=== PATIENT | male | born 1955 | race Caucasian/White ===

== ENCOUNTER 2017-05-14 19:15 | Inpatient (IN) | payer OTHER ==
--- NOTE | 2017-05-13 23:50 | NUR ---
[facility] HOSPITALIST NUMBER [phone], SPOKE TO DR. FALCON, INFORMED OF MEDICAL CONSULT, DR. FALCON STATED TO PLACE CONSULT UNDER . ALSO REVIEWED ALL MEDICATIONS, MEDICAL HISTORY, ADMISSION VITALS, AND REASON FOR ADMISSION WITH DR. FALCON. DR. FALCON STATED TO CONTINUE ALL MEDICATIONS AT THIS TIME. ALSO STATED TO PLACE IN ORDER FOR PATIENTS BIPAP MACHINE. NO OTHER ORDERS RECIEVED.
[~2017-05-14] VITALS: Ht 165.1 cm; Wt 150.6 kg
--- NOTE | ~2017-05-14 | PR ---
[place], [place] PROGRESS NOTE NAME: KARRI ADAMSON [facility] #: [id number] UNIT #: [id number] ROOM: 312 DOCTOR: Breanna QUINTERO,JOSLYN BIRTHDATE: [birth year] DOS: 05/19/2017 PSYCHIATRIC PROGRESS NOTE SUBJECTIVE: Patient seen and spoke with staff. Per staff, patient is doing well. Slept well last night. Some paranoia, but no behavior problems or issues and med compliant. Patient was pleasant and cooperative. He was in his room as usual on bed. He reports doing okay. States that he is still paranoid, but it is much better than before. Had fleeting suicidal ideation, but no intent or plan. He said that the medication seems to be helping him. Denied any side effect from the medication. Did not express any other problems or concerns. MENTAL STATUS EXAMINATION: Patient was pleasant, cooperative. Described his mood as "better." Affect broad range. Thought process goal directed. No flight of ideas or loosening of association. He denied auditory or visual hallucination. He reports being paranoid, but much better than before. Denied any other psychotic symptoms. He still had fleeting suicidal ideation, but no intent or plan. Denied any homicidal ideation, intent or plan. Insight and judgment fair. ASSESSMENT: Schizoaffective disorder, still paranoid with passive suicidal ideation, but no intent or plan. PLAN: 1. We will continue current medication. We need to give time for the medication to have its optimal effect. 2. Continue redirection. 3. Wayne milieu. 4. Encourage activity and groups. JOSLYN QUINTERO MD CM:NEWTON [phone] Breanna QUINTERO 05/20/17 0433 interface
--- NOTE | ~2017-05-14 | DS ---
[place], [place] DISCHARGE SUMMARY NAME: KARRI ADAMSON [facility] #: [id number] UNIT #: [id number] ROOM: 312 DOCTOR: CYNTHIA GRIFFIN MD BIRTHDATE: [birth year] DOS: 05/23/2017 CHIEF COMPLAINT: "I just wanted to end it all, I felt horrible." HISTORY OF PRESENT ILLNESS: This is a 61-year-old white male with a long history of either schizoaffective or bipolar disorder, who presented to [facility] with a chief complaint of increased depression and suicidal ideation with a plan to cut himself from ear to ear. The patient reports that he has felt horrible since recent medication changes were made by his outpatient psychiatrist. His BuSpar was discontinued and he was started on Klonopin. Additionally, he was started on a new antipsychotic, Navane. Since that time, he has noted increase in depression with poor sleep and appetite, energy, anhedonia, hopeless, helpless feelings, crying spells and inability to cope with strong feelings of wanting to end it all. He was sent here by [facility] to rule out further organic factors, to stabilize on medication and to engage in individual and robledo milieu activity. PAST MEDICAL HISTORY: Remarkable for hypertension, atrial fibrillation, diabetes, renal failure, hypothyroidism, coronary artery disease, MIs and long history of depression. SUMMARY OF HOSPITAL COURSE: The patient was admitted to the hospital where his Navane was discontinued in lieu of Abilify 20 mg a day. This was later lowered down to 15. He was also started on trazodone 100 mg at bedtime with excellent results. The patient did briefly get restarted on BuSpar, however, it was decided that this was not needed, nor was the Vistaril that was also started upon admission with the addition of the Abilify that seemed to give him the greatest impact and worked rather rapidly. His mood quickly stabilized and he normalized sleep and appetite. He voiced positive plans for the future and no longer exhibited any suicidal or homicidal ideation. He also tolerated the medication regimen well without any apparent side effects. FINAL DIAGNOSES: Bipolar type 1, mixed. PLAN: All of his prescriptions have been e scribed to [facility] in [place], [place]. He will have followup per his outpatient psychiatrist. [place], [place] DISCHARGE SUMMARY NAME: KARRI ADAMSON UNIT #: [id number] ROOM: 312 DOCTOR: CYNTHIA GRIFFIN MD BIRTHDATE: [birth year] CYNTHIA GRIFFIN MD CM:FRANCESCA [id number] CYNTHIA GRIFFIN MD 05/23/17 1026 interface
--- NOTE | ~2017-05-14 | PR ---
[place], [place] PROGRESS NOTE NAME: KARRI ADAMSON [facility] #: [id number] UNIT #: [id number] ROOM: 312 DOCTOR: Breanna QUINTERO,JOSLYN BIRTHDATE: [birth year] DOS: 05/16/2017 PSYCHIATRIC PROGRESS NOTE SUBJECTIVE: Patient seen and spoke with the staff. Per staff, patient slept all night. Goal directed. Still had suicidal ideation, but no intent or plan. Patient was pleasant and cooperative, where he was somewhat apprehensive. He said he took his medication and it seems they are helping. He talked about his fleeting suicidal ideation, but no intent or plan. He said that he did not have any side effect from the medication and hoping that the medication will help him. He was not in any acute distress. MENTAL STATUS EXAMINATION: The patient was pleasant, cooperative. Described his mood as "okay." Affect was flat. Thought process goal directed. No flight of ideas, loosening of association. He denied auditory or visual hallucination. No delusion or paranoia noted. He had fleeting suicidal ideation, but no intent or plan. Denied any homicidal ideation, intent or plan. Insight and judgment fair. ASSESSMENT: Schizoaffective disorder, still suicidal. PLAN: 1. Continue current medication and care. We have to give time for the medication to start working. 2. Continue redirection. 3. Wayne milieu. JOSLYN QUINTERO MD CM:PNTRANS 58 Breanna QUINTERO 05/17/1739 interface
--- NOTE | ~2017-05-14 | PR ---
[place], [place] PROGRESS NOTE NAME: KARRI ADAMSON [facility] #: [id number] UNIT #: [id number] ROOM: 312 DOCTOR: Breanna QUINTERO,JOSLYN BIRTHDATE: [birth year] DOS: 05/18/2017 PSYCHIATRIC PROGRESS NOTE SUBJECTIVE: Patient seen and spoke with the staff. Per staff, patient is doing well. No behavioral problems or issues. Med compliant. Patient was pleasant, cooperative. He was at first in his room. He said the medication is helping him; he is taking them and did not have any side effect. He still had some paranoia. He also talked about some racing thoughts and having passive suicidal ideation. He mentioned that he will let the staff know if the thought becomes stronger. MENTAL STATUS EXAMINATION: Patient was pleasant, cooperative. Described his mood as "okay." Affect, mood congruent. Thought process goal directed. No flight of ideas, loosening of association. He denied auditory or visual hallucination. He reports being paranoid. He reports fleeting suicidal ideation, but no intent or plan. Denied homicidal ideation, intent or plan. ASSESSMENT: Schizoaffective disorder. PLAN: 1. Continue current medication and care. 2. Continue redirection. 3. Wayne milieu. JOSLYN QUINTERO MD CM:NEWTON [phone] Breanna QUINTERO 05/18/17 2335 interface
--- NOTE | ~2017-05-14 | PR ---
[place], [place] PROGRESS NOTE NAME: KARRI ADAMSON [facility] #: [id number] UNIT #: [id number] ROOM: 312 DOCTOR: Breanna QUINTERO,JOSLYN BIRTHDATE: [birth year] DOS: 05/20/2017 SUBJECTIVE:. The patient seen and spoke with the staff. Per staff, the patient is doing well. No behavior problems or issues. Medication compliant. The patient was pleasant, cooperative. He was in the day area watching TV. This is somewhat unusual than his normal days. He stays in his room most of the time. He reports doing well. He feels that the medication is helping him. He still had some paranoia, but denied any other psychotic symptoms. He said that he tried to get ahold of his girlfriend, but the girlfriend did not answer his phone. In talking, he told me that he stays in his home most of the day. He does not have any significant family or social support system in the community. I talked with him about doing some volunteer work or going to some day treatment facility. The patient seems to be agreeable with that suggestion. MENTAL STATUS EXAMINATION: The patient was pleasant and cooperative. Described his mood as "okay." Affect, mood congruent. Thought process goal directed. No flight of ideas or loosening of association. He denied auditory or visual hallucination. He still had some paranoia. Denied any suicidal ideation, intent or plan. He also denied any homicidal ideation, intent or plan. Insight and judgment fair. ASSESSMENT: Schizoaffective disorder. PLAN: 1. Continue current medication and care. 2. Probably we need to look into engaging some activity in the community upon discharge. 3. Medication management, discharge plan by the regular team. JOSLYN QUINTERO MD CM:NEWTON [phone] Breanna QUINTERO 05/20/17 0953 interface
--- NOTE | ~2017-05-14 | WRIGHTHP ---
[place], [place] PATIENT HISTORY AND PHYSICAL EXAM NAME: KARRI ADAMSON [facility] #: [id number] UNIT #: [id number] ROOM: 312 DOCTOR: Breanna QUINTEROVERNELLJESSE BIRTHDATE: [birth year] DOS: 05/14/2017 REASON FOR HOSPITALIZATION: Increased depression and suicidal ideation with plan to cut his throat. HISTORY OF PRESENT ILLNESS: The patient was seen, chart reviewed and spoke with staff. A 61-year-old male with long history of bipolar disorder versus schizoaffective disorder, who got transferred from [facility] to the [facility] for further care and stabilization. In the ER, his labs were within normal limit. Urine drug screen was negative. Reportedly, the patient went to the ER by himself and stating that he wanted to kill himself by cutting his throat. The patient was pleasant and cooperative, but very anxious and shaky during the interview. He reports being depressed, down, sad, hopeless, helpless with lack of energy and motivation. He also talked about increased anxiety, but denied any panic attack. When I asked him that what made him feel the way he has been feeling. He talked about recent medication changes and also feeling "miserable" without any specific reason. He said that not able to sleep well at night, added to his miserable feeling. The patient denied any symptoms of psychosis, darlene or hypomania. The patient mentioned that recently his psychiatrist stopped his BuSpar and started him on Klonopin and also started him on NaBen. The patient mentioned that he has been feeling increasingly anxious, cloudy and feeling restless. The patient wanted to get help in terms of his medication adjustment and not to feel the way he has been feeling. He reports occasional racing thoughts, mood swings and irritability. PAST MEDICAL HISTORY: Significant for hypertension, atrial fibrillation, diabetes mellitus, questionable renal failure in the past, history of hypothyroidism, coronary artery disease, multiple myocardial infarctions and had a cardiac catheterization in 1999. PAST PSYCHIATRIC HISTORY: Multiple prior psychiatric hospitalization. Denied prior suicide attempt. No suicide in the family. FAMILY HISTORY: Denied having any gun at home. SUBSTANCE ABUSE HISTORY: The patient denied any drugs or alcohol. SOCIAL HISTORY: Was born and raised in [place] year of college. He was once for short period of time, , no kids. He is on social security disability. He lives by himself. He denied any history of physical or sexual abuse. MENTAL STATUS EXAMINATION: The patient was pleasant and cooperative, described his mood as "down." Affect was flat. Thought process goal directed. No flight of ideas or loosening of association. He denied auditory or visual hallucination. No delusion or paranoia noted. He had suicidal ideation with a plan to cut himself. Denied any homicidal ideation, intent or plan. Insight [place], [place] PATIENT HISTORY AND PHYSICAL EXAM NAME: KARRI ADAMSON UNIT #: [id number] ROOM: 312 DOCTOR: Breanna QUINTERO MAHBOOB BIRTHDATE: [birth year] and judgment fair. IMPRESSION: Bipolar disorder, currently very depressed with suicidal ideation, rule out schizoaffective disorder. PLAN: 1. I will discontinue his NaBen. 2. I will start him on Abilify 20 mg in the morning. The patient mentioned that he took Abilify in the past and that helped him and he is not sure why this got discontinued. 3. I will start him on trazodone 100 mg at night for sleep. 4. I will restart him on BuSpar 5 mg b.i.d. The patient mentioned that he did well with BuSpar and not sure why that got stopped. 5. I will start him on Vistaril 25 mg t.i.d. p.r.n. for breakthrough anxiety until the BuSpar is in full effect. 6. I will continue his Trileptal 300 mg twice a day that he has been getting. 7. To need to get collateral information from other hospital. 8. One to one therapy, psychoeducation, coping skills. 9. Unit milieu. JOSLYN QUINTERO MD CM:HISPHYS:PATIENT HISTORY AND PHYSICAL EXAMINATION [id number] Breanna QUINTERO 05/15/17 1222 interface
--- NOTE | ~2017-05-14 | PR ---
[place], [place] PROGRESS NOTE NAME: KARRI ADAMSON [facility] #: [id number] UNIT #: [id number] ROOM: 312 DOCTOR: Breanna QUINTERO,JOSLYN BIRTHDATE: [birth year] DOS: 05/17/2017 SUBJECTIVE: The patient seen and spoke with the staff. Per staff, the patient is doing well. No behavioral problems or issues except for his blood sugar was a little high. He slept very well. Medication compliant. The patient was pleasant, cooperative. He was in the day area. He reports doing well. He feels that the medication is helping him. He denied any auditory or visual hallucination. No delusion or paranoia noted. He had fleeting suicidal ideation, but no intent or plan. Denied homicidal ideation, intent or plan. Insight and judgment fair. ASSESSMENT: Schizoaffective disorder. PLAN: 1. Continue current medication and care. 2. Continue redirection. 3. Supportive care and robledo milieu. JOSLYN QUINTERO MD CM:NEWTON 47 [phone] Breanna QUINTERO 05/17/172350 interface
[~2017-05-14 19:15] MED LIST: BUSPAR10 MG PO; CALCIUM 1200 W/1 SGL PO; DULCOLAX10 M1 R; FENOFIBRATE160 MG PO; FLEXERIL10 MG PO; FOLIC ACID1 MG PO; GABAPENTIN300 MG PO; HUMULIN R100 U/ML SC; LANOXIN0.25 MG PO; LANTUS100 U/ML SC; LASIX40 MG PO; LIPITOR10 MG PO; LISINOPRIL10 MG PO; METFORMIN1000 MG PO; METOPROLOL SR100 MG PO; PERCOCET 325 MG1 TA2 PO; PRADAXA150 MG PO; SINGULAIR10 MG PO; SYNTHROID25 MCG PO; TOPAMAX25 MG PO; TYLENOL650 M1 PO; ULTRAM50 MG PO
[2017-05-14] MEDS ORDERED: LASIX40 MG PO (20:13)
[2017-05-14] MEDS ORDERED: HUMALOG100 UNIT/1 SQ (20:49)
[2017-05-14] MEDS ORDERED: PRILOSEC20 M1 PO (20:53)
[2017-05-14] MEDS ORDERED: METOLAZONE5 MG PO (20:54)
[2017-05-14] MEDS ORDERED: HYDROCHLOROTHIA25 M1 PO (20:55)
[2017-05-14] MEDS ORDERED: CARDIZEM CD120 M2 PO (20:57)
[2017-05-14] MEDS ORDERED: DOCUSATE SODIU100 M2 PO (20:59)
[2017-05-14] MEDS ORDERED: VITAMIN D-32000 UNI1 PO (21:00)
[2017-05-14] MEDS ORDERED: TRULICITY0.75 MG/0. SC (21:02)
[2017-05-14 21:10] VITALS: BP 126/74
--- NOTE | 2017-05-14 21:10 | NUR ---
A 61 YO, admitted INVOLUNTARY to , under the services of Dr.MAHBOOB QUINTERO with a diagnosis of SUICIDAL IDEATIONS . Chief complaint is SUICIDAL IDEATIONS, ANXIETY, AND POOR SLEEP. Patient arrived via stretcher from [facility]. Initial assessment completed. Vital signs taken and recorded. DR. JOSLYN QUINTERO notified of admission to the unit. Orders received. See assessment for past medical history, medications and allergies. Patient oriented to unit. [facility] visitation policy reviewed. Clothing/patient valuable form completed. JOE MORALES
[2017-05-14 21:15] VITALS: BP 126/74
[2017-05-14] MEDS ORDERED: TRESIBA FL200 UNIT/1 SQ (22:46)
[2017-05-14] MEDS ORDERED: CENTRUM MEN'S1 EACH PO (22:49)
[2017-05-14] MEDS ORDERED: FLOMAX0.4 MG PO (22:51)
[2017-05-14] MEDS ORDERED: OXYBUTYNIN10 MG PO (22:51)
[2017-05-14] MEDS ORDERED: KLONOPIN2 M1 PO (22:54)
[2017-05-14] MEDS ORDERED: TRAZODONE50 MG PO (22:54)
[2017-05-14] MEDS ORDERED: COGENTIN0.5 MG PO (22:56)
[2017-05-14] MEDS ORDERED: NAVANE5 MG PO (22:56)
[2017-05-14] MEDS ORDERED: IMDUR SA60 M1 PO (23:14)
[2017-05-14] MEDS ORDERED: POTASSIUM99 M5 PO (23:15)
--- NOTE | 2017-05-14 23:50 | NUR ---
[facility] HOSPITALIST NUMBER [phone], SPOKE TO , INFORMED HIM OF MEDICAL CONSULT. STATED TO PLACE CONSULT UNDER . ALSO REVIEWED ALL MEDICATIONS, MEDICAL HISTORY, ADMISSION VITALS, AND REASON FOR ADMISSION WITH DR. FALCON. STATED TO CONTINUE ALL MEDICATIONS AT THIS TIME. ALSO STATED TO PLACE IN ORDER FOR PATIENTS BIPAP MACHINE. ORDERS WRITTEN DOWN AND REPEATED BACK, WITNESSED BY SECOND RN. NO OTHER ORDERS RECIEVED.
[2017-05-15 04:25] LABS: CHOLESTEROL 142 mg/dL (<200); HDL CHOLESTEROL 31 mg/dl (40-60); LDL CHOLESTEROL 81 mg/dL (9-159); TRIGLYCERIDES 151 mg/dl (<150); VLDL CHOLESTEROL 30 mg/dL (6-40)
--- NOTE | 2017-05-15 07:16 | NUR ---
PATIENT COOPERATIVE WITH ADMISSION ASSESSMENT WITHOUT DIFFICULTY. DENIES HALLUCINATIONS OR DELUSIONS. NO NOTED RESPONDING TO INTERNAL STIMULI. NO PHYSICAL COMPLAINTS VOICED. PATIENT STATES HE "RARELY" HAS SUICIDAL THOUGHTS BUT IF HE LEAVES HERE "IT WILL NOT BE GOOD" BECAUSE HE HAS HAD AN INCREASE IN ANXIETY AND "I DONT SLEEP VERY WELL AND I CANT TAKE IT ANYMORE". EMOTIONAL SUPPORT PROVIDED. DENIES SUICIDAL IDEATIONS AT THIS TIME BUT INFORMED THAT IF THOUGHTS ARISE TO NOTIFY STAFF. PATIENT CONTRACTED FOR SAFETY. MEDICATION COMPLIANT WITHOUT DIFFICULTY AFTER REVIEW. NO SIGNS OR SYMPTOMS OF DISTRESS NOTED. REFER TO [facility] FLOWSHEET FOR SPECIFIC MONITORING.
[2017-05-15 08:03] VITALS: BP 132/72; BP 140/100
[2017-05-15] MEDS ORDERED: PERCOCET 5-3251 EACH PO (09:10)
--- NOTE | 2017-05-15 09:13 | NUR ---
DR. QUINTERO ON UNIT TO SEE PT AT THIS TIME, UPDATE GIVEN.
[2017-05-15] MEDS ORDERED: TRILEPTAL300 MG PO (09:19)
[2017-05-15 09:30] LABS: BILIRUBIN NEGATIVE (NEGATIVE); BLOOD NEGATIVE (NEGATIVE); CLARITY CLEAR (CLEAR); COLOR YELLOW (YELLOW); GLUCOSE TRACE (NEGATIVE); KETONE NEGATIVE (NEGATIVE); LEUKO ESTERASE NEGATIVE (NEGATIVE); NITRITE NEGATIVE (NEGATIVE); PH 7.5 (5.0-9.0)
--- NOTE | 2017-05-15 10:24 | NUR ---
CALL PLACED TO [phone], SPOKE WITH DR. ADKINS, MADE AWARE PHARMACY STATES TRULIICY AND TRESIBA ARE UNAVAILABLE. MADE AWARE PT STATES HE TAKES 20 UNITS OF NOVOLOG WITH MEALS AND NO SLIDING SCALE. DR. ADKINS STATES WE WILL CONTINUE 20 UNITS NOVOLOG WITH MEALS PT TAKES AT HOME. ALSO MADE AWARE OF POTASSIUM AT ER WAS 3.4, PT STATES HE TAKES "500MG OF POTASSIUM OVER THE COUNTER" MADE AWARE POTASSIUM IS LISTED IN MED REC WITH NO DOSE, DR. ADKINS STATES THEY WILL MONITOR IT. DR. ADKINS REQUESTS THIS NURSE OBTAIN PHARMACY RECOMMENDATIONS FOR SUBSTITUTION FOR TRULICITY AND TRESIBA.
--- NOTE | 2017-05-15 11:24 | NUR ---
PT IS ALERT AND ORIENTED TO PERSON, PLACE, TIME AND SITUATION. MEMORY APPEARS TO BE INTACT. RESPIRATIONS EASY ON ROOM AIR, POX 98% ON ROOM AIR, PT UTILIZES BIPAP AT HS D/T DX SLEEP APNEA. BIPAP LOCKED IN CUPBOARD WHEN NOT IN USE. MOOD IS DEPRESSED WITH FLAT AFFECT. SPEECH IS WNL AND COHERENT, ABLE TO MAKE NEEDS KNOWN WITHOUT DIFFICULTY. PT REPORTS FEELING ANXIOUS AND RESTLESS, DENIES SI/HI AT THIS TIME, DENIES HALLUCINATIONS, NO S/S INTERNAL STIMULI NOTED. NO PARANOIA/DELUSIONS NOTED. PT WAS GIVEN PRN VISTARIL 25MG ONE CAP PO AT [address] QUINTERO FOR PT C/O ANXIETY/RESTLESSNESS, PT REPORTS THIS MEDICATION INEFFECTIVE. PT WAS THEN GIVEN ROUTINELY SCHEDULED BUSPAR AND ABILIFY. PT SHOWERED, DRESSED, APPEARS LESS ANXIOUS, NO FURTHER COMPLAINTS VOICED. PT IS AMBULATORY WITH STEADY GAIT, INDEPENDENT WITH ADLS, CONTINENT OF BOWEL AND BLADDER, FEEDS SELF. TREMORS NOTED TO BILATERAL UPPER EXTREMITIES, DR. QUINTERO AWARE, PT RECIEVING COGENTIN. PT'S TREATMENT PLAN TARGETS SUICIDIAL IDEATION RELATED TO ANXIETY AND POOR SLEEP EVIDENCED BY PT'S VERBALIZATION OF OVERWHELMING FEELING TO 'SLICE THROAT EAR TO EAR.' STAFF WILL ASSESS PT FOR SUICIDAL IDEATIONS DURING DAILY INTERACTIONS, ASSIST PT IN IDENTIFYING TRIGGERS TO SUICIDAL IDEATIONS, ASSIST PT TO IDENFTIFY 3 COPING SKILLS TO RELIEVE SYMPTOMS AND ENCOURAGE MEDICATION COMPLIANCE. PLAN TO CONTINUE CURRENT TX PLAN. NO DISTRESS NOTED. Q15 MIN SAFETY CHECKS CONTINUE PER POLICY, REFER TO [facility] FLOWSHEET FOR SPECIFIC MONITORING.
--- NOTE | 2017-05-15 11:40 | NUR ---
DR. AGRAWAL, DR. ADKINS AND DR. GLORIA ON UNIT AT THIS TIME, MADE AWARE OF PHARMACY'S RECOMMENDATIONS RE: TRULICITY AND TRESIBA, PER CONRAD (PHARMACIST) CONVERSIONS WOULD FOLLOWS: TRULICITY - SUBSTITUTE VICTOZA 0.6MG SQ DAILY. TRESBIA - SUBSTITUTE LEVEMIR [address] ADKINS STATES HE WILL ENTER THESE ORDERS. DR. AGRAWAL STATES OK TO CHANGE NOVOLOG TIMES TO MEAL TIMES.
--- NOTE | 2017-05-15 17:15 | NUR ---
20 UNITS ROUTINELY ORDERED NOVOLOG HELD FOR 1700 DOSE, BSG 143, PT REFUSING TO EAT DINNER, STATES "IF I EAT NOW I'LL THROW UP AND IF I TAKE THAT INSULIN MY SUGAR WILL DROP."
--- NOTE | 2017-05-15 17:49 | NUR ---
CALLED TO PT'S ROOM BY MILIEU, PT STATES "I JUST THREW UP. I'VE BEEN SICK TO MY STOMACH EVER SINCE YOU GAVE ME THAT LOZENGE. I CAN'T TAKE ANY MORE OF THOSE." CALL PLACED TO [phone], SPOKE TO DR. TOSCANO, MADE AWARE OF THE ABOVE. NO DOCUMENTED ALLERGY TO ZOFRAN, DR. TOSCANO STATES HE WILL ENTER NEW ORDER FOR PO ZOFRAN.
--- NOTE | 2017-05-15 18:13 | NUR ---
SHIFT CHART CHECK COMPLETED.
[2017-05-15 19:50] VITALS: BP 114/64
--- NOTE | 2017-05-15 22:15 | NUR ---
MAINTENANCE ON FLOOR TO CHECK BIPAP MACHINE. GIVEN THE OK TO USE. CIRCUITRY NEGATIVE INSPECTOR WITH STERILE WATER IN PLACE AND PT RESTING QUIETLY WITH BIPAP IN PLACE.
--- NOTE | 2017-05-15 23:05 | NUR ---
PT A&O X4. RESPITRATIONS EASY AND NON LABORED ON ROOM AIR. PT UTILIZES BIPAP AT HS D/T DX SLEEP APNEA. BIPAP LOCKED IN CABINET IN ROOM WHEN NOT IN USE. MOOD IS DEPRESSED. AFFECT FLAT. ABLE TO MAKE WANTS AND NEEDS KNOWN TO STAFF WITHOUT DIFFICULTY. DENIES SI/HI, HALLUCINATIONS/DELUSIONS AT THIS TIME. MEDICATION COMPLIANT WITH ALL MEDICATIONS. NO DISTRESS NOTED. NO C/O PAIN. PT'S TX PLAN TARGETS SUICIDAL IDEATIONS R/T ANXIETY AND POOR SLEEP AEB PTS VERBALIZATION OF OVERWHELMING FEELING TO "SLICE THROAT FROM EAR TO EAR" STAFF WILL ASSESS PT FOR SUICIDAL IDEATIONS, ASSIST PT TO IDENTIFY 3 COPING SKILLS TO RELIEVE SYMPTOMS AND ENCOURAGE MEDICATION COMPLIANCE. STAFF WILL EDUCATE PT ON NEW MEDICATIONS. ENCOURAGE ATTENADNCE AND PARTICIPATION IN GROUPS AND ACTIVITIES. PLAN IS TO CONTINUE WITH CURRENT TX PLAN. Q 15 MINUTE SAFETY CHECKS MAINTAINED. SEE [facility] FLOWSHEET FOR SPECIFIC MONITORING.
--- NOTE | 2017-05-15 23:13 | NUR ---
24 HR chart check completed.
[2017-05-16 04:10] LABS: BASO # 0.1 10*3/uL (0.0-0.1); EOS # 0.1 10*3/uL (0.0-0.4); EOS % 1.2 % (1.0-4.0); HEMATOCRIT 41.2 % (42.0-52.0); HEMOGLOBIN 14.5 g/dl (14.0-18.0); MEAN CELL VOLUME 82.4 fl (80.0-94.0); MEAN CORPUSCULAR HGB CONC 35.2 g/dl (33.0-37.0); MEAN PLATELET VOLUME 10.7 fl (9.6-12.3); MONO # 0.7 10*3/uL (0.1-1.0); MONO % 7.1 % (3.0-9.0); NEUT # 6.5 10*3/uL (2.3-7.9); NEUT % 69.3 % (47.0-73.0); PLATELET COUNT AUTOMATED 233 10*3/uL (130-400); RED CELL DISTRI WIDTH 13.7 % (0-14.5); WHITE BLOOD COUNT 9.4 10*3/uL (4.8-10.8)
--- NOTE | 2017-05-16 04:10 | NUR ---
PT CAME TO NURSES STATION ASKING "IS THERE A PRN I CAN HAVE BECAUSE i AM ANXIOUS" WHEN PT WAS ASKED WHY HE WAS ANXIOUS PT REPLIED "BECAUSE I AM AWAKE AND THERES NOTHING TO DO". EXPLAINED TO PT HE WAS ABLE TO SIT IN THE DININGROOM AND LOOK AT MAGAZINES, WATCH TV, OR TALK TO STAFF. PT WANTED TO WATCH TV FOR A BIT IN THE DININGROOM. PT STAYED FOR ABOUT 10 MINUTES THEN DECIDED HE WAS GOING TO TRY TO LAY BACK DOWN. WILL REASSESS PT ANXIETY.
[2017-05-16 04:30] LABS: ALKALINE PHOSPHATASE 95 U/L (45-117); BUN 28 mg/dl (7-24); CHLORIDE 95 mmol/L (98-107); CREATININE 1.26 mg/dL (0.70-1.30); PHOSPHOROUS 5.2 mg/dL (2.5-4.9); POTASSIUM 3.5 mmol/L (3.5-5.1); SGOT/AST 108 IU/L (3-35); SGPT/ALT 65 U/L (12-78); SODIUM 133 mmol/L (136-145); TOTAL PROTEIN 8.4 gm/dL (6.4-8.2)
--- NOTE | 2017-05-16 05:00 | NUR ---
PT RESTING QUIETLY WITH EYES CLOSED AT THIS TIME. NO S/S OF ANXIETY NOTED.
--- NOTE | 2017-05-16 06:08 | NUR ---
PT SLEPT GREATER THAN 8 HOURS THIS SHIFT. NO S/S OF DISTRESS. NO C/O PAIN.
[2017-05-16 08:43] VITALS: BP 136/80
[2017-05-16 08:52] VITALS: BP 136/80
--- NOTE | 2017-05-16 09:06 | NUR ---
insurance authorized patient's stay 6 days, nr 05/19/17
--- NOTE | 2017-05-16 10:12 | NUR ---
Treatment Team was held with the Following: Dr. Dobbs (phone), RNs, At, SWs. DR. Dobbs said that Pt can sign in voluntarily.
--- NOTE | 2017-05-16 10:40 | NUR ---
CHEL recived message from People Manager that Pt has an appt with Dr. Hannon today @ 10:50 and would like SW to cancel it. CHEL called Dr. Timothy Hannon office and canceled appotinemnt. ([phone])
--- NOTE | 2017-05-16 10:45 | NUR ---
PHYSICAL THERAPY Physical Therapy Evaluation completed this date. See eval document for further details. Based on the independence demonstrated with the functional skills tested, no ongoing PT services recommended at this time[place] [id number] based on chart review and PT eval. Binta Alford, PT
--- NOTE | 2017-05-16 12:41 | NUR ---
Exercising/Reminiscing/Positive Traits. Patient did attend group the last 1/2 of group. Patient participated only when prompted to do so. Patient maintained safe behavior and no suicidal ideations while in group
--- NOTE | 2017-05-16 13:22 | NUR ---
CHEL CALLED [facility] TO CANCEL APPT. FOR PT ON 05-17-17 AT 12:30PM. CHEL WILL RESCHEDDULE UPOPN DISCHARGE. ([phone])
--- NOTE | 2017-05-16 13:29 | NUR ---
CHEL RECEIVED A CALL FROM [facility] INFORMING THAT STAY IS COVERED 05/14 TO 05/19 WITH REVIEW ON THE . PHONE [phone]. CHEL TRANSFERRED CALL TO .
--- NOTE | 2017-05-16 15:35 | NUR ---
Fiona and positive trait group Patient attended group with limited participation. Patient with difficultly finding postive traits about self or receiving postive comments from peers. Patient did not verbalize SI throughout treatment. Patient eager to leave group at the end and concerned when next group was. " I dont want to go to my room and have to come back up for another group."
--- NOTE | 2017-05-16 15:40 | NUR ---
assessment complete. pt signed "no-harm" contract.
--- NOTE | 2017-05-16 16:43 | NUR ---
Bobby is compliant with prescribed medications. Approriate in conversation with staff during 1:1 interaction. He denies any current thoughts of self harm when questioned. Mood is depressed. Reports that he has been feeling badly @ home. States that he does not have any family to assist him @ home, as well. Reports that he would like to "get some help to feel better." No delusions were expressed during time spent with staff. No hallucinatory activity. Refer to process intervention screen for glucometer readings of today. Also refer to [facility] flowsheet for specific monitoring. No self abusive behavior has been exhibited. Fall precautions maintained. No unsteadiness noted.
[2017-05-16 20:00] VITALS: BP 122/76
--- NOTE | 2017-05-16 23:10 | NUR ---
PATIENT TREATMENT PLAN SUICIDE IDEATIONS RELATED TO LACK OF SLEEP AND FEELING OVERWHELMED. PATIENT DID NOT VERBALIZE ANY SUICIDE IDEATIONS WITH THIS NURSE. NO HALLUCINATIONS OR DELUSIONS. PATIENT CALM AND PURPOSEFUL AND FEELING ANXIOUS AT HS ABOUT HOOKING UP BIPAP. THIS NURSE REMOVED BIPAP FROM LOCKED SIDE OF CLOSET AND SET UP AND PUT ON PATIENT. PATIENT MEDICATION COMPLIANT. PATIENT WITH COMPLAINT OF TASTE OF NYSTATIN AND REQUESTED ICE WATER TO WASH DOWN NYSTATIN TASTE.
--- NOTE | 2017-05-17 04:54 | NUR ---
24 HR chart check completed.
--- NOTE | 2017-05-17 06:50 | NUR ---
Q 15 MINUTE SAFETY CHECKS MAINTAINED. SLEPT > 6 HOURS THROUGHOUT SHIFT. VOICES NO COMPLAINTS OF PAIN OR DISCOMFORT AT THIS TIME. AMBULATING IN HALLWAY TO DINING AREA AT 0602 TO WATCH TELEVISION
[2017-05-17 08:10] VITALS: BP 136/76
--- NOTE | 2017-05-17 09:20 | NUR ---
TREATMENT TEAM WAS HELD WITHTHE FOLLOWING: DR. QUINTERO (PHONE), RNs, AT, SW. PT DENIED SUICIDAL THOUGHTS TO NURSE.
--- NOTE | 2017-05-17 10:25 | NUR ---
PATIENT IS ALERT AND ORIENTED TO PERSON, PLACE AND TIME, ABLE TO VOICE NEEDS. RESPIRATIONS ARE EASY, NON-LABORED ON ROOM AIR. MOOD IS FLAT AND DEPRESSED. DENIES ANY HALLUCINATIONS, DELUSIONS, HI/SI OR PAIN. PATIENT IS ORGANZIED AND GOAL DIRECTED, INTERACTIVE WITH STAFF, PARTICIPATES IN ACTIVITY GROUP. PATIENT IS CALM, COOPERATIVE. PATIENT IS INDEPENDANT WITH ACTIVITIES OF DAILY LIVING. CONTINENT OF BOWEL AND BLADDER. MEAL INTAKES ARE GOOD WITH ADEQUATE FLUIDS. AMBULATORY WITH STEADY GAIT. MEDICATION COMPLIANT WITH EDUCATION PROVIDED. Q 15 MINUTE SAFETY CHECKS MAINTAINED. MONITOR PATIENT FOR VOICING SUICIDAL IDEATION AND MAINTIAN SAFE ENVIROMENT.
--- NOTE | 2017-05-17 11:20 | NUR ---
[facility] Patient attended group and actively participated. Patient appropriately answered postive self questions and coping skills. Patient requires redirection at one point with question of name something you want to do that you havent done yet. Patient reports going to [employer] for a type of "illeagal match" when he was younger and being brought up in some type of group. Redirected patient to positive thoughts and coping skills. Patient with good affect throughout treatment and smiled/laughed several times. Patient reports no SI during group.
[2017-05-17 12:30] VITALS: BP 90/60
--- NOTE | 2017-05-17 12:35 | NUR ---
MANUAL BP 90/60, NO COMPLAINS OF BEING DIZZY, JUST TIRED. DR. VICKERS NOTIFIED OF BP, OKAY TO HOLD DOSE AT THIS TIME.
--- NOTE | 2017-05-17 12:36 | NUR ---
Nutritional Support Services Note: Ht.5'5 Wt.332#. BMI>40. Diet as ordered is 1800cal secondary to IDDM and need for weight loss. Appetite is good. Encourage compliance to diet. BS is controlled at this time. Will follow as needed. No other nutrition intervention needed at this time. Will monitor for discharge as warranted for diet. [address]
--- NOTE | 2017-05-17 15:41 | NUR ---
Self Esteem Story/Coping Skills Jeopardy Patient was in attendence for group this afternoon. Patient Participated at a limited amount during the first half of group. During the second half of group when patient was being encouraged to join in patient stated "I hate groups. They are too stressfull. They are talking about putting me in outpatient therapy and if its groups i wont go. Groups make me stressed out. The only reason i go to theses ones is because they wont let me go home if i dont. I'll sit here but im not going to participate." Explained to patient that groups are done to help patients and if he would prefer 1:1 that can be arranged. Patient will think about it
[2017-05-17 20:00] VITALS: BP 125/65
--- NOTE | 2017-05-18 04:27 | NUR ---
24 HR chart check completed.
--- NOTE | 2017-05-18 05:43 | NUR ---
PATIENT TREATMENT PLAN WITH SUICIDE IDEATION RELATED TO LACK OF SLEEP AND FEELING OVERWHELMED. PATIENT VOICES NO COMPLAINTS FO SUICIDE IDEATIONS, HALLUCINATIONS, DELUSIONS. BIPAP ON AT HS WITH HOME SETTINGS. PATIENT AMBULATING IN HALLWAY WITH STEADY GAIT. MEDICATION COMPLIANT
--- NOTE | 2017-05-18 06:54 | NUR ---
Q 15 MINUTE SAFETY CHECKS MAINTAINED. SLEPT > 8 HOURS THIS SHIFT. VOICES NO COMPLAINTS OF PAIN OR DISCOMFORT. TOLERATING NYSTATIN SWISH AND SWALLOW WITHOUT DIFFICULTY
[2017-05-18 07:58] VITALS: BP 153/87
--- NOTE | 2017-05-18 11:08 | NUR ---
Reminiscing Patient was in attendence during group as well as participated.Patient did not show any signs of unsafe behaviors or suicidal ideations throughout group
[2017-05-18 11:55] VITALS: BP 115/70
--- NOTE | 2017-05-18 12:52 | NUR ---
PATIENT IS ALERT AND ORIENTED. ABLE TO VOICE NEEDS AND WANTS TO STAFF. APPROPRAITE IN CONVERSATIONS. MOOD IS STABLE AND EUTHYMIC WITH BROAD RANGE AFFECT. DURING 1:1 IUNTERACTIONS WITH STAFF HE VERBALIZES HE IS "GETTING THERE" IS REGARDS TO HOW HE IS FEELING. DENIES ANY SUICIDAL IDEATION, PLAN, OR IDEA. DENIES ANY SENSORY DISTURBANCES AND NONE ARE NOTED. DENIES ANY HI OR DELUSIONS AND NONE ARE NOTED. NO BEHAVIORS NOTED THIS SHIFT. MEDICATION COMPLIANT WITHOUT DIFFICULTY. HAS BEEN ATTENDING AND PARTICIPATING IN GROUP THERAPIES. MEDICATION EDUCATION COMPLETED THIS MORNING WITH GOOD EFFECT, PATIENT VERBALIZES UNDERSTANDING. DENIES ANY ADVERSE REACTIONS FROM MEDICATIONS AND NONE ARE NOTED. STATES HE IS TOLERATING MEDICATIONS WELL. POSITIVE PEER INTERACTIONS NOTED. APPETITE GOOD FOR MEALS, TAKING FLUIDS WELL. WILL CONTINUE Q15 MIN OBSERVATION CHECKS PER ORDERS. WILL CONTINUE TO ENCOURAGE PATIENT TO ATTEND GROUP THERAPY. NAPS INTERMITTENTLY THROUGHOUT THE SHIFT. SEE [facility] FLOWSHEET FOR SPECIFIC MONITORING.
--- NOTE | 2017-05-18 15:42 | NUR ---
Identifying My Strengths Patient did attend group as well as participated when prompted to do so. Patient did maintain safe behavior and verbalized no suicidal ideations while in group
[2017-05-18 19:19] VITALS: BP 103/64
[2017-05-18 20:16] VITALS: BP 118/68
--- NOTE | 2017-05-19 04:50 | NUR ---
PATIENT OBSERVED ON Q 15 MIN CHECKS TO HAVE SLEPT QUIETLY THROUGHOUT THE NIGHT WITH NO AWAKENINGS. RESPIRATIONS EASY AND REGULAR, SPO2 93 ON ROOM AIR. PT UTILIZES BIPAP AT HS D/T DX OF SLEEP APNEA. BIPAP LOCKED IN CUPBOARD WHEN NOT IN USE. DENIES SI/HI THIS SHIFT, DENIES HALLUCINATIONS, NO SIGNS OR SYMPTOMS RESPONDING TO INTERNAL STIMULI. MEDICATION COMPLIANT WITHOUT DIFFICULTY. NO PHYSICAL COMPLAINTS VOICED. PTS TREATMENT PLAN TARGETS SUICIDAL IDEATION RELATED TO ANXIETY AND POOR SLEEP EVIDENCED BY PATIENTS VERBALIZATION OF OVERWHELMING FEELING TO "SLICE THROAT EAR TO EAR". STAFF WILL CONTINUE T0 ASSESS PATIENT FOR SUICIDAL IDEATIONS DURING DAILY INTERACTIONS, ASSIST PATIENT IN IDENTIFYING TRIGGERS TO SUICIDAL IDEATIONS, ASSIST PATIENT TO IDENIFY 3 COPING SKILLS TO RELIEVE SYMPTOMS AND ENCOURAGE MEDICATION COMPLIANCE. PLAN TO CONTINUE CURRENT TX PLAN. NO SIGNS OR SYMPTOMS OF DISTRESS NOTED. Q 15 MIN CHECKS CONTINUED PER POLICY, REFER TO [facility] FLOWSHEET FOR SPECIFIC MONITORING.
--- NOTE | 2017-05-19 06:11 | NUR ---
24 HOUR CHART CHECK COMPLETED.
[2017-05-19 08:19] VITALS: BP 125/69
--- NOTE | 2017-05-19 09:25 | NUR ---
TREATMENT MCKINNON WAS HELD WITHT HE FOLLOWING: DR. QUINTERO (PHONE), RNs, AT, SW. DR. QUINTERO SATED PT IS STILL PAPRANOID.
--- NOTE | 2017-05-19 10:44 | NUR ---
PT IS ALERT AND ORIENTED TO PERSON, PLACE, TIME AND SITUATION. MEMORY APPEARS INTACT. RESPIRATIONS EASY ON ROOM AIR. MOOD IS STABLE, AFFECT APPROPRIATE. SPEECH IS WNL AND COHERENT, ABLE TO MAKE NEEDS KNOWN WITHOUT DIFFICULTY. PT DENIES HALLUCINATIONS, NO RESPONSE TO INTERNAL STIMULI NOTED. PT DENIES SI/HI. VERBALLY CONTRACTED FOR SAFETY. NO PARANOIA/DELUSIONS NOTED. PT REPORTS GOOD SLEEP LAST NIGHT. MEDICATION COMPLIANT WITHOUT DIFFICULTY. PT IS AMBULATORY WITH STEADY GAIT, INDEPENDENT WITH ADLS, CONTINENT OF BOWEL AND BLADDER, USES RESTROOM INDEPENDENTLY. DISPLAYS GOOD APPETITE WITH ADEQUATE FLUID INTAKE. PT IS CALM AND COOPERATIVE, NOTED TO BE LESS ISOLATIVE THIS AM. SITTING IN DAY ROOM WITH PEERS. PT'S TREATMENT PLAN TARGETS: SUICIDAL IDEATIONS R/T ANXIETY AND POOR SLEEP AEB PT'S VERBALIZATION OF AN OVERWHELMING FEELING TO 'SLICE THROAT EAR TO EAR'. STAFF WILL CONTINUE TO ASSESS PT FOR SUICIDAL IDEATIONS, ASSIST PT IN IDENTIFYING TRIGGERS TO SUICIDAL IDEATIONS, ASSIST PT IN DEVELOPING COPING SKILLS AND ENCOURAGE MEDICATION COMPLIANCE. PLAN TO CONTINUE CURRENT TX PLAN. NO DISTRESS NOTED. Q15 MIN SAFETY CHECKS MAINTAINED, REFER TO [facility] FLOWSHEET FOR SPECIFIC MONITORING.
--- NOTE | 2017-05-19 13:18 | NUR ---
Layo/Rohini Patient was in attendence for group this morning. Patient did not participate even when prompted or encouraged to do so. Patient states he hates groups and doesnt participate in them. Patient did maintain safe behaviors and verbialized no suicidal ideations while attending group
--- NOTE | 2017-05-19 14:05 | NUR ---
updated review called to insurance company, patient's stay approved with last covered day 05/23/17 and next review on 05/23/17
--- NOTE | 2017-05-19 15:30 | NUR ---
Fears Patient was in attendence for group this afternoon but only participated when prompted. Patient maintained safe behaviors and voiced no suicidal ideations while in group
--- NOTE | 2017-05-19 17:39 | NUR ---
SHIFT CHART CHECK COMPLETED.
--- NOTE | 2017-05-19 18:38 | NUR ---
DR. QUINTERO HERE TO SEE PT AT THIS TIME.
[2017-05-19 20:08] VITALS: BP 124/74
--- NOTE | 2017-05-20 05:23 | NUR ---
24 HOUR CHART CHECK COMPLETED.
--- NOTE | 2017-05-20 05:25 | NUR ---
PATIENT OBSERVED ON Q 15 MIN CHECKS TO HAVE SLEPT QUIETLY THROUGHOUT THE NIGHT WITH NO AWAKENINGS. RESPIRATIONS EASY AND REGULAR, SPO2 94 ON ROOM AIR. PT UTILIZES BIPAP AT HS D/T DX OF SLEEP APNEA. BIPAP LOCKED IN CUPBOARD WHEN NOT IN USE. DENIES SI/HI THIS SHIFT. DENIES HALLUCINATIONS, NO NOTED RESPONDING TO INTERNAL STIMULI. MEDICATION COMPLIANT WITHOUT DIFFICULTY. NO PHYSICAL COMPLAINTS VOICED. PATIENTS TREATMENT PLAN TARGETS SUICIDAL IDEATION RELATED TO ANXIETY AND POOR SLEEP AEB PATIENTS VERBALIZATION OF OVERWHELMING FEELING TO "SLICE THROAT EAR TO EAR". STAFF WILL CONTINUE TO ASSESS PATIENT IN IDENTIFYING TRIGGERS TO SUICIDAL IDEATIONS, ASSIST PATIENT TO IDENIFY 3 COPING SKILLS TO RELIEVE SYMPTOMS AND ENCOURAGE MEDICATION COMPLIANCE. PLAN TO CONTINUE CURRENT TX PLAN. NO SIGNS OR SYMPTOMS OF DISTRESS NOTED. Q 15 MIN CHECKS CONTINUED PER POLICY, REFER TO [facility] FLOWSHEET FOR SPECIFIC MONITORING.
[2017-05-20 07:40] VITALS: BP 126/76
--- NOTE | 2017-05-20 09:38 | NUR ---
TREATMETN TEAM WAS HELD WITH THE FOLLOWING: DR. QUINTERO(PHONE), RNs, AT, SW, AND DIRECTOR. DR. QUINTERO WOULD LIKE PT TO BE SET UP WITH [facility] IOP BUT PT TOLD NURSE THAT HE WILLNOT GO. PARANOID. PT CAN SIGN IN VOLUNTRAY.
--- NOTE | 2017-05-20 11:23 | NUR ---
Remembering Our Tastes Patient was in attendence for group as well as participated. Patient actively participated, needing no prompting. Patient maintained safe behaviors and voiced no suicidal ideations while in group
--- NOTE | 2017-05-20 15:26 | NUR ---
G[facility] Patient was in attendence for group as well as participated. While in group Patient maintained safe behaviors and voiced no suicidal ideations
[2017-05-20 19:54] VITALS: BP 140/75
--- NOTE | 2017-05-21 00:40 | NUR ---
24HR CHART CHECKS COMPLETE
--- NOTE | 2017-05-21 03:08 | NUR ---
PT ALERT AND ORIENTED X4. PT SOCIALIZED WELL WITH PEERS DURING THIS SHIFT. PT'S AFFECT BRIGHT. DENIES SI/HI, HALLUCINATIONS OR DELUSIONAL THOUGHT PROCESSES. NURSE PROMPTED AND ENCOURAGED PATIENT TO LET STAFF KNOW WHAT NEEDS WE CAN MEET, WELL , VOICING ANY SI. PT RECEPTIVE AND VERBALIZED UNDERSTANDING OF CONVERSATION. PT REPORTS THAT HIS SLEEP HAS DRASTICALLY IMPROVED IN THE LAST FEW DAYS AND REPORTS FEELINGS OF READINESS FOR DISCHARGE. CONTINUE TO MONITOR FOR CHANGES IN BEHAVIOR. REFER TO FLOWSHEET FOR ADDITIONAL INFO.
[2017-05-21 08:23] VITALS: BP 121/68
--- NOTE | 2017-05-21 10:52 | NUR ---
DR. BRADFORD ON UNIT TO SEE PATIENT.
--- NOTE | 2017-05-21 11:50 | NUR ---
PRN DOCULAX SUPPOSITY EFFECTIVE WITH SMALL RESULTS.
--- NOTE | 2017-05-21 13:09 | NUR ---
PATIENT IS ALERT AND ORIENT TO PERSON, PLACE, TIME AND SITUATION. ABLE TO VOICE NEEDS. DENIES ANY HALLUCINATIONS, DELUSION, HI/SI OR PAIN. MOOD IS STABLE, ORGANIZED AND GOAL DIRECTED. INTERACTIVE WITH OTHER PATIENTS AND OTHER STAFF. MEDICATION COMPLAINT WITH EDUCATION PROVIDED. Q 15 MINUTE SAFETY CHECKS. INDEPENDANT WITH ACTIVITY OF DAILY LIVING, SET UP FOR MEALS. CONTINENT OF BOWEL AND BLADDER. CONTINUE TO MONITOR FOR VOICED SUICIDAL THOUGHTS.
--- NOTE | 2017-05-21 16:13 | NUR ---
Shift chart check completed.
--- NOTE | 2017-05-21 19:28 | NUR ---
24HR CHART CHECKS COMPLETE
--- NOTE | 2017-05-21 20:08 | NUR ---
42 UNITS OF LEVEMIR ADMINISTERED AT THIS TIME. AWAITING NEW PEN FROM PHARMACY. WILL ADMINISTER REMAINING 48 UNITS WHEN PEN ARRIVES.
[2017-05-21 20:37] VITALS: BP 144/89
--- NOTE | 2017-05-21 21:56 | NUR ---
PT ALERT AND ORIENTED X4. PT OBSERVED SMILING AND WATCHING FOOTBALL WITH THE OTHER PATIENTS. DENIES SI/HI, HALLUINCATIONS, OR DELUSIONAL THOUGHT PROCESSES. COUNSELLED REGARDING DIABETIC CONTROL THROUGH DIET CHANGE. PT SOMEWHAT RECEPTIVE TO EDUCATION. PLACING BLAME ON OUTSIDE FACTORS. CONTINUE TO PROMOTE DIALOGUE WITH PATIENT IN HOPES TO FOSTER THERAPEUTIC RAPPORT. CONTINUE TO MONITOR FOR CHANGES IN BEHAVIOR. REFER TO FLOWSHEET FOR ADDITIONAL INFO.
--- NOTE | 2017-05-22 06:23 | NUR ---
PT SLEPT >8HRS WITH NO INTERRUPTIONS.
[2017-05-22 07:52] VITALS: BP 147/68
--- NOTE | 2017-05-22 10:43 | NUR ---
PATIENT IS ALERT AND ORIENTED TO PERSON, PLACE AND TIME; ABLE TO VOICE NEEDS. RESPIRATIONS ARE EASY, NON-LABORED ON ROOM AIR. MOOD IS STABLE, THOUGHT PROCESS IS ORGANIZED AND GOAL DIRECTED. DENIES ANY HALLUCINATIONS, DELUSIONS, HI/SI OR PAIN. INDEPENDANT WITH ACTIVITIES OF DAILY LIVING, AMBULATORY WITH STEADY GAIT. MEAL INTAKES ARE GOOD WITH ADEQUATE FLUIDS. CONTINENT OF BOWEL AND BLADDER. CALM DEMEANOR, INTERACTIVE WITH OTHER PATIENTS AND STAFF. MEDICAITON COMPLIANT WITH MED EDUCATION PROVIDED. NO RESPONSE TO INTERNAL STIMULI NOTED. Q 15 MINUTE SAFETY CHECKS. PATIENT ENCOURAGED TO NOTIFY NURSE WITH THOUGHTS OF SUCIDAL IDEATIONS AND CONTINUE TO MONITOR.
--- NOTE | 2017-05-22 10:49 | NUR ---
DR. BRADFORD ON UNIT TO SEE PATIENT.
[2017-05-22 19:42] VITALS: BP 140/70
--- NOTE | 2017-05-23 00:33 | NUR ---
24 HR chart check completed.
--- NOTE | 2017-05-23 06:32 | NUR ---
PT HAS BEEN OBSERVED ON Q 15 MIN CHECKS & HAS SLEPT QUIETLY THROUGHOUT THE SHIFT PAST 2200.
--- NOTE | 2017-05-23 06:53 | NUR ---
AM BEDSIDE GLUCOSE 180
[2017-05-23 07:08] LABS: BUN 22 mg/dl (7-24); CHLORIDE 96 mmol/L (98-107); CREATININE 1.13 mg/dL (0.70-1.30); SODIUM 137 mmol/L (136-145)
[2017-05-23 07:54] VITALS: BP 138/84
--- NOTE | 2017-05-23 08:30 | NUR ---
DR. VICKERS NOTIFIED OF POTASSIUM LAB THIS AM OF 3.0. NNO RECIEVED AT THIS TIME.
--- NOTE | 2017-05-23 09:10 | NUR ---
TREATMENT TEAM WAS HELD WITH THE FOLLOWING: DR. GRIFFIN, RNs, ATs, SW. DR. GRIFFIN DISCHARGING PT TODAY.
--- NOTE | 2017-05-23 09:51 | NUR ---
PT IS ALERT AND ORIENTED TO PERSON, PLACE, TIME AND SITUATION. MEMORY APPEARS INTACT. RESPIRATIONS EASY ON ROOM AIR. MOOD IS STABLE, AFFECT IS BROAD RANGE AND APPROPRIATE. SPEECH IS WNL AND COHERENT, ABLE TO MAKE NEEDS KNOWN WITHOUT DIFFICULT. PT DENIES SI/HI PLAN OR INTENT. PT DENIES HALLUCINATIONS, NO RESPONSE TO INTERNAL STIMULI NOTED. NO PARANOIA/DELUSIONS NOTED. MEDICATION COMPLIANT WITHOUT DIFFICULTY. PT IS AMBULATORY WITH STEADY GAIT, INDEPENDENT WITH ADLS, CONTINENT OF BOWEL AND BLADDER. DISPLAYS GOOD APPETITE WITH ADEQUATE FLUID INTAKE. PT'S TX PLAN TARGETS (1) SUICIDIAL IDEATIONS R/T ANXIETY AND POOR SLEEP AEB VERBALIZATION OF OVERWHELMING FEELING TO 'SLICE THROAT EAR TO EAR'. STAFF WILL ASSESS PT FOR SI DURING DAILY INTERACTIONS, ASSIST PT IN IDENTIFY TRIGGERS TO SI BEHAVIORS, ASSIST PT IN DEVELOPING COPING SKILLS AND ENCOURAGE MEDICATION COMPLIANCE. PLAN TO CONTINUE CURRENT TX PLAN. PT VERBALIZES READINESS FOR DISCHARGE. DR. GRIFFIN IN TO SEE PT THIS AM, UPDATE GIVEN. NO DISTRESS NOTED. Q15 MIN SAFETY MONITORING CONTINUES PER ORDERS, REFER TO [facility] FLOWSHEET FOR SPECIFIC MONITORING.
[2017-05-23] MEDS ORDERED: ARIPIPRAZOLE15 MG PO (10:04)
[2017-05-23] MEDS ORDERED: TRAZADONE HYDR100 MG PO (10:04)
[2017-05-23] MEDS ORDERED: BENZTROPINE ME0.5 MG PO (10:04)
[2017-05-23] MEDS ORDERED: OXCARBAZEPINE150 MG PO (10:04)
--- NOTE | 2017-05-23 11:03 | NUR ---
DR. BRADFORD ON UNIT TO SEE PT AT THIS TIME, MADE AWARE OF DISCHARGE FOR TODAY. ALSO MADE AWARE OF POTASSIUM OF 3.0 AND NNO RECIEVED FROM .
--- NOTE | 2017-05-23 12:57 | NUR ---
Exercise/Letter to Me Patient was in attendence for group as well as participated. Patient maintained safe behaviors and voiced no ideations during group
--- NOTE | 2017-05-23 15:29 | NUR ---
[facility] Patient did not attend group. Patient refused saying "This is my last day here and i just want to lay down and relax." Patient was encouraged to join but still refused
--- NOTE | 2017-05-23 15:37 | NUR ---
CHEL MADE AYAD LEHMAN APPOINTMENTS WITH [facility] 05/25 AT 11:15AM; DR. BOSTON 06/03 AT 1120AM; MARIFER LEFT [facility].
--- NOTE | 2017-05-23 15:39 | NUR ---
SW HAD PT SIGN DISCHARGE PAPERS. PT STATED THAT HE HAD AN APPOINTMENT AT [facility] ON 05-27 AND WILL KEEP THAT APPOINTMENT (TIME IS IN HIS WALLET). COPIES OF DISCHARGE PAPERWORK PREPARED FOR PT.
--- NOTE | 2017-05-23 15:40 | NUR ---
CHEL OBTAINED PERMISSION FROM [facility] TO TAKE PT BACK TO [place] DUE TO [facility]SP[facility] BENEFIT. CHEL CALLED [facility]. DISPATCHER ONLY HAS 3 DRIVERS AND THEY ARE ON RUNS. DISCAPTCHER WILL SEND SOMEONE SOON SHE CAN.
--- NOTE | 2017-05-23 18:00 | NUR ---
PT DISCHARGED TO HOME AT 1605 VIA [facility]. SHORTLY AFTER LEAVING FACILITY IT WAS DISCOVERED PT'S LOCK BOX ITEMS REMAINED ON THE UNIT. PT RETURNED TO HOSPITAL APPROX 1800 VIA [facility] TO RETRIEVE BELONGINGS, CAB RIDE AUTHORIZED BY CRISTO GARCIA, NURSING KNITTER HELPER.
--- NOTE | 2017-05-24 14:18 | NUR ---
Medical Claims Manager Note: Faxed discharge information to Dr. aguirre office and to [facility] program. Confirmation's receieved from both.
== END 2017-05-23 16:20 | disposition home or self-care (01) | DRG 885 ==
LOC: 3N 19:15
PROVIDERS: Internal Medicine; Psychiatry & Neurology Psychiatry; Registered Nurse; ADMIT Psychiatry & Neurology Psychiatry
DX: F31.60 Bipolar disorder, current episode mixed, unspecified (principal); B37.0 Candidal stomatitis; D68.59 Other primary thrombophilia; E11.65 Type 2 diabetes mellitus with hyperglycemia; E66.01 Morbid (severe) obesity due to excess calories; F23 Brief psychotic disorder; Z68.43 Body mass index [BMI] 50.0-59.9, adult; F25.9 Schizoaffective disorder, unspecified; F41.9 Anxiety disorder, unspecified; I10 Essential (primary) hypertension; G89.29 Other chronic pain; E03.9 Hypothyroidism, unspecified; E78.5 Hyperlipidemia, unspecified; K21.9 Gastro-esophageal reflux disease without esophagitis; I48.91 Unspecified atrial fibrillation; M54.9 Dorsalgia, unspecified; I25.10 Atherosclerotic heart disease of native coronary artery without angina pectoris; I25.2 Old myocardial infarction; Z71.6 Tobacco abuse counseling; Z79.4 Long term (current) use of insulin; Z88.0 Allergy status to penicillin; Z88.8 Allergy status to other drugs, medicaments and biological substances; Z79.899 Other long term (current) drug therapy; Z91.048 Other nonmedicinal substance allergy status; Z72.0 Tobacco use